=== PATIENT | female | born 1985 | race Two or more races ===

== ENCOUNTER 2020-11-28 10:07 | Emergency (ER) | payer BC ==
[~2020-11-28] VITALS: Ht 157.5 cm; Wt 70.0 kg
[2020-11-28] MEDS ORDERED: IBUPROFEN 600MG TABLET PO ONE (10:30)
[2020-11-28] MEDS ORDERED: T3 PO (10:41)
[2020-11-28] MEDS ORDERED: CLIN300C12 MT (10:41)
[2020-11-28] MEDS ORDERED: IBUP-2029 MT (10:41)
[2020-11-28 11:14] VITALS: BP 123/68
== END 2020-11-28 11:15 | disposition home or self-care (01) ==
LOC: ER 10:07
DX: L02.818 Cutaneous abscess of other sites (principal); L02.412 Cutaneous abscess of left axilla; E11.9 Type 2 diabetes mellitus without complications
CPT/HCPCS: 99283

== ENCOUNTER 2020-12-04 08:53 | Emergency (ER) | payer BC ==
[~2020-12-04] VITALS: Ht 160 cm; Wt 100.0 kg
[~2020-12-04 08:53] MED LIST: CLIN300C12 MT; IBUP-2029 MT; T3 PO
[2020-12-04 08:55] VITALS: BP 133/81
[2020-12-04] MEDS ORDERED: LIDOCAINE HCL/PF 1% 10 MG/ML 5ML VIAL IJ ONE (09:15)
[2020-12-04] MEDS ORDERED: BACITRACIN ZINC OINT UDPKT TOP ONE (09:15)
[2020-12-04] MEDS ORDERED: ACETAMINOPHEN 325MG TABLET PO ONE (10:00)
== END 2020-12-04 10:02 | disposition home or self-care (01) ==
LOC: ER 08:53
DX: L02.412 Cutaneous abscess of left axilla (principal); E11.9 Type 2 diabetes mellitus without complications; Z98.890 Other specified postprocedural states; Z88.0 Allergy status to penicillin
CPT/HCPCS: 10060; 99282; J3490; Z7610

== ENCOUNTER 2021-04-19 14:13 | Emergency (ER) | payer BC ==
[~2021-04-19] VITALS: Ht 160 cm; Wt 110.0 kg
[2021-04-19 14:24] VITALS: BP 139/80
[2021-04-19] MEDS ORDERED: CLIN150C15 MT (15:31)
[2021-04-19] MEDS ORDERED: ACETAMINOPHEN WITH CODEINE 300/30MG TABLET PO ONE (16:00)
== END 2021-04-19 16:00 | disposition home or self-care (01) ==
LOC: ER 14:13
DX: L03.115 Cellulitis of right lower limb (principal); E11.9 Type 2 diabetes mellitus without complications; Z88.0 Allergy status to penicillin
CPT/HCPCS: 99283

== ENCOUNTER 2021-04-22 13:18 | Emergency (ER) | payer BC ==
[~2021-04-22] VITALS: Ht 162.6 cm; Wt 104.0 kg
[~2021-04-22 13:18] MED LIST changes: +CLIN150C15 MT
[2021-04-22 14:05] VITALS: BP 133/61
[2021-04-22] MEDS ORDERED: TETANUS, DIPHTHERIA, PERTUSSIS VAC/PF 0.5ML (>7YR OLD) IM ONE (14:30)
[2021-04-22] MEDS ORDERED: BACITRACIN ZINC OINT UDPKT TOP ONE (14:30)
== END 2021-04-22 19:30 | disposition home or self-care (01) ==
LOC: ER 15:42
DX: S80.861A Insect bite (nonvenomous), right lower leg, initial encounter (principal); E11.9 Type 2 diabetes mellitus without complications; Z48.00 Encounter for change or removal of nonsurgical wound dressing; Z88.0 Allergy status to penicillin; W57.XXXA Bitten or stung by nonvenomous insect and other nonvenomous arthropods, initial encounter; Y93.89 Activity, other specified; Y92.89 Other specified places as the place of occurrence of the external cause; Y99.8 Other external cause status
CPT/HCPCS: 90471; 90715; 99283; Z7610